=== PATIENT | female | born 1995 | race Caucasian/White ===

== ENCOUNTER 2017-06-15 21:32 | Emergency (ER) | payer OTHER ==
[~2017-06-15] VITALS: Ht 165.1 cm; Wt 67.1 kg
--- OUTSIDE RECORDS SUMMARY | 2017-06-15 21:39 | XMS REPORT | Summary of Care ---
Author Author Sylvie Bliss Organization Unknown Address [address] [place], [place] [id number] Phone Unavailable Care Team Providers Care Director Dance Name Role Phone Sylvie Bliss Unavailable Unavailable PCP Not Assigned Unavailable Unavailable Unavailable Unavailable Functional Status Name Dates Details Functional status health issues are not documented Status: Name Dates Details Cognitive status health issues are not documented Status: Problems Name Dates Details Embedded earring of right ear, initial encounter (910.6, S00.451A) Status: Active Sore throat (462, J02.9) Status: Active Fatigue (780.79, R53.83) Status: Active Medications Name Dates Details No Reported Medications Sylvie Bliss Active Allergies and Adverse Reactions Name Dates Details No Known Drug Allergies (Allergy) Status: Active Procedures Procedure Dates Details Procedures not documented Immunization Name Dates Details Immunizations not documented Social History Name Dates Details - Status: Name Dates Details Never smoker Vital Signs Date Test Result Details 22-Nov-2016 12:04 BP Systolic 102 mm[Hg] Status: Comments: Location: ; Position: BP Diastolic 62 mm[Hg] Status: Comments: Location: ; Position: Temperature 98.2 f Status: Comments: Method: Heart Rate 93 /min Status: Comments: Location: ; Height 64.5 in Status: Weight 162 lb Status: Physical Findings 98 Status: Comments: O2 Saturation Body Mass Index Calculated 27.38 kg/m2 Status: Body Surface Area Calculated 1.8 m2 Status: Results Date Description Value Details Results not documented Plan of Care Name Dates Details Planned Observations Planned Goals not documented Instructions Name Dates Details Instructions not documented Encounters Appointment; Sylvie Bliss Encounter Diagnosis: Problem not documented On 12-Aug-2016 15:40
--- OUTSIDE RECORDS SUMMARY | 2017-06-15 21:39 | XMS REPORT | Summary of Care ---
Author Author Sylvie Bliss Organization Unknown Address [address] [place], [place] [id number] Phone Unavailable Care Team Providers Care Emissions Technician Name Role Phone Sylvie Bliss Unavailable Unavailable Outside, Physician Unavailable Unavailable Functional Status Name Dates Details Functional status health issues are not documented Status: Name Dates Details Cognitive status health issues are not documented Status: Problems Name Dates Details Active medical history not documented Status: Medications Name Dates Details Medication not documented Allergies and Adverse Reactions Name Dates Details Allergy history not documented Status: Procedures Procedure Dates Details Procedures not documented Immunization Name Dates Details Immunizations not documented Social History Name Dates Details Unknown if ever smoked Vital Signs Date Test Result Details No Known Vitals to report Results Date Description Value Details Results not documented Plan of Care Name Dates Details Planned Observations Planned Goals not documented Instructions Name Dates Details Instructions not documented Encounters Appointment; Sylvie Bliss Encounter Diagnosis: Problem not documented On 12-Aug-2016 15:40
--- OUTSIDE RECORDS SUMMARY | 2017-06-15 21:39 | XMS REPORT | Summary of Care ---
Author Author Sylvie Bliss Organization Unknown Address [address] [place] [id number] Phone Unavailable Care Team Providers Care Centrifuge Operator Name Role Phone Ashwini Bedolla Unavailable Unavailable PCP Not Assigned Unavailable Unavailable Unavailable Unavailable Functional Status Name Dates Details Functional status health issues are not documented Status: Name Dates Details Cognitive status health issues are not documented Status: Problems Name Dates Details Embedded earring of right ear, initial encounter (910.6, S00.451A) Status: Active Sore throat (462, J02.9) Status: Active Mononucleosis (075, B27.90) Status: Active Medications Name Dates Details PredniSONE 10 MG Oral Tablet TAKE 4 TABLETS DAILY FOR 2 DAYS,3 TABLETS DAILY FOR 2 DAYS, 2 TABLETS DAILY FOR 2 DAYS AND 1 TABLET DAILY FOR 2 DAYS, THEN STOP. Quantity: 20 Ashwini Bedolla * Start 24-Nov-2016 Active Allergies and Adverse Reactions Name Dates Details No Known Drug Allergies (Allergy) Status: Active Past Medical History Name Dates Details History of Known health problems: none (V49.89, Z78.9) Status: Resolved Procedures Procedure Dates Details Procedures not documented Immunization Name Dates Details Immunizations not documented Family History Name Dates Details Family history of Known health problems: none (V49.89, Z78.9) Status: Active Name Dates Details Family history of Known health problems: none (V49.89, Z78.9) Status: Active Social History Name Dates Details - Status: [...] m2 Status: Results Date Description Value Details 22-Nov-2016 12:27 STREPTOCOCCUS SCREEN WITH CULTURE 5040 Comments: *Culture in progress*Testing performed by [facility], [address], [place] [address] Testing performed by [facility], [address], [place] [address] *STREPTOCOCCUS SCREEN NEGATIVE for Streptococcus pyogenes Range: NEGATIVE for Streptococcus pyogenes 12:49 Mononucleosis Ab (Reflex to EBV) 2011 [place] (Reflex to EBV) POSITIVE (Abnormal) Range: Negative 24-Nov-2016 15:44 THROAT CULTURE [id number] Comments: Betyah performed at: [facility] [place] [facility], [id number] [place] [address], [phone], Community Resource Consultant: Desmond Mckeon D.O., MPHQuest Collection Date/Time: [id number] Results Received Date/Time: [id number] Reported Date/Time: [id number] performed at: [facility] [place] [facility], [address] [place] [address], [phone], Community Resource Consultant: Desmond Mckeon D.O., MPHQuest Collection Date/Time: [id number] Results Received Date/Time: [id number] Reported Date/Time: [id number] CULTURE, THROAT SEE NOTE Comments: CULTURE, THROAT MICRO NUMBER: [id number] TEST STATUS: FINAL SPECIMEN SOURCE: THROAT SPECIMEN QUALITY: ADEQUATE RESULT: No oropharyngeal pathogens recovered.[[place]] ----- Plan of Care Name Dates Details Planned Observations Planned Goals not documented Interventions Provided Medication Changes* PredniSONE 10 MG Oral Tablet - Start Instructions Name Dates Details Instructions not documented Encounters Appointment; Sylvie Bliss Encounter Diagnosis: Problem not documented On 22-Nov-2016 11:25 Appointment; Sylvie Bliss Encounter Diagnosis: Problem not documented On 12-Aug-2016 15:40
--- OUTSIDE RECORDS SUMMARY | 2017-06-15 21:39 | XMS REPORT | Summary of Care ---
Author Author Graeme Ashwini Organization Unknown Address [address] [place], [place] [address] Phone Unavailable Care Team Providers Care Wire Sawyer Name Role Phone Ashwini Bedolla Unavailable Unavailable [...] Status: Active Fatigue (780.79, R53.83) Status: Active Mononucleosis (075, B27.90) Status: Active [...]
--- OUTSIDE RECORDS SUMMARY | 2017-06-15 21:39 | XMS REPORT | Summary of Care ---
Author Author Sylvie Bliss Organization Unknown Address [address] [place], [place] [address] Phone Unavailable Care Team Providers Care Alley Worker Name Role Phone Sylvie Bliss Unavailable Unavailable Outside, Physician Unavailable Unavailable Functional Status Name Dates Details Functional status health issues are not documented Status: Name Dates Details Cognitive status health issues are not documented Status: Problems Name Dates Details Embedded earring of right ear, initial encounter (910.6, S00.451A) Status: Active Medications Name Dates Details Mupirocin 2 % External Ointment APPLY A SMALL AMOUNT 2 TIMES DAILY DIRECTED. Quantity: 1 Sylvie Bliss * Start 14-Aug-2016 Active 22 GM Tube Allergies and Adverse Reactions Name Dates Details No Known Drug Allergies (Allergy) Status: Active Procedures Procedure Dates Details Procedures not documented Immunization Name Dates Details Immunizations not documented Social History Name Dates Details - Status: Name Dates Details Never smoker Vital Signs Date Test Result Details 14-Aug-2016 10:52 BP Systolic 128 mm[Hg] Status: Comments: Location: ; Position: BP Diastolic 83 mm[Hg] Status: Comments: Location: ; Position: Temperature 98.6 f Status: Comments: Method: Heart Rate 67 /min Status: Comments: Location: ; Physical Findings 99 Status: Comments: O2 Saturation Results Date Description Value Details Results not documented Plan of Care Name Dates Details Planned Observations Planned Goals not documented Instructions Name Dates Details Instructions not documented Encounters Appointment; Sylvie Bliss Encounter Diagnosis: Problem not documented On 12-Aug-2016 15:40
--- OUTSIDE RECORDS SUMMARY | 2017-06-15 21:39 | XMS REPORT | Summary of Care ---
Author Author Sylvie Bliss Organization Unknown Address [address] [place] [phone] Phone Unavailable Care Team Providers Care Logger Driving Horses Name Role Phone Sylvie Bliss Unavailable Unavailable Ashwini Bedolla Unavailable Unavailable PCP Not Assigned [...] FOR 2 DAYS, THEN STOP. Quantity: 20 KpannikaAshwini * Start 24-Nov-2016 Active Allergies and Adverse [...] 5040 Comments: *Culture in progress*Testing performed by [facility], [address], [place] [address] Testing performed by [facility], [address], [place] [address] *STREPTOCOCCUS SCREEN NEGATIVE for Streptococcus pyogenes Range: NEGATIVE for Streptococcus pyogenes 12:49 Mononucleosis Ab (Reflex to EBV) 2011 [place] (Reflex to EBV) POSITIVE (Abnormal) Range: Negative 24-Nov-2016 15:44 THROAT CULTURE [id number] Comments: Syrinix performed at: [facility], [address] [place] [address], [phone], Dock Hand: Desmond Mckeon D.O., MPHQuest Collection Date/Time: [id number] Results Received Date/Time: [id number] Reported Date/Time: [id number] performed at: [facility], [address] [place] [address], [phone], Dock Hand: Desmond Mckeon D.O., MPHQuest Collection Date/Time: [id number] Results Received Date/Time: [id number] Reported Date/Time: [id number] CULTURE, THROAT SEE NOTE Comments: CULTURE, THROAT MICRO NUMBER: [id number] TEST STATUS: FINAL SPECIMEN SOURCE: THROAT SPECIMEN QUALITY: ADEQUATE RESULT: No oropharyngeal pathogens recovered.[[place]] ----- Plan of Care Name Dates Details Planned Observations Planned Goals not documented Instructions Name Dates Details Instructions not documented Encounters Appointment; Sylvie Bliss Encounter Diagnosis: Problem not documented On 12-Aug-2016 15:40
--- NOTE | 2017-06-15 21:47 | ED Integumentary General ---
General Stated Complaint: SPIDER BITE L THIGH Source: patient Exam Limitations: no limitations History of Present Illness Time seen by provider: 21:47 Initial Comments To ER with a possible spider bite to the posterior left thigh. Patient was sitting on the floor of her home when she looked down and saw a spider crawling on her. She then evaluated herself and believes she may have seen a bite jose rafael to the back of her left thigh but she did not feel anything. She found a little bump and this was about an hour ago and since then she's been applying ice to the area. She has no systemic symptoms, no rash no pain. Timing/Duration: just prior to arrival Severity: mild Associated Symptoms: denies symptoms Constitutional: see HPI EENTM: see HPI Respiratory: no symptoms reported Cardiovascular: no symptoms reported Genitourinary: no symptoms reported Musculoskeletal: no symptoms reported Skin: no symptoms reported Psychiatric/Neurological: No Symptoms Reported Endocrine: No Symptoms Reported Past Hcvifqt-Tkifvg-Kujfln Hx Patient Social History Recent Foreign Travel: No Contact w/Someone Who Travel: No Physical Exam Vital Signs Capillary Refill : General Appearance: WD/WN, no apparent distress HEENT: PERRL/EOMI, normal ENT inspection Neck: non-tender, full range of motion Respiratory: no respiratory distress, no accessory muscle use Gastrointestinal: normal bowel sounds, non tender Neurologic/Psychiatric: alert, normal mood/affect, oriented x 3 Skin: normal color, warm/dry Skin Problem Location: other (small papule 2 mm in the posterior left thigh without induration and edema erythema or petechiae) Departure Impression Impression: Primary Impression: Brown recluse spider bite Disposition: 01 HOME, SELF-CARE Condition: Stable Departure-Patient Inst. Decision time for Depature: 21:44 Referrals: NO,LOCAL PHYSICIAN (PCP/Family) Primary Care Physician Patient Instructions: Spider Bites Add. Discharge Instructions: Keep cool compresses on this for the next 24-48 hours but be careful not to get to cold and induce a frostbite injury 2. Keep an eye out for any necrotic tissue which will appear as whitish tissue or black tissue 3. Keep an eye out for any systemic symptoms such as nausea, malaise, fevers or rash. This should prompt us to do blood work HUNTER FLOOD APRN Jun 15, 2017 21:47
[2017-06-15] MEDS ORDERED: Zyrtec (21:51)
[2017-06-15] MEDS ORDERED: Multivitamin (21:51)
== END 2017-06-15 21:52 | disposition home or self-care (01) ==
LOC: ER 21:35
DX: T63.331A Toxic effect of venom of brown recluse spider, accidental (unintentional), initial encounter (principal)
CPT/HCPCS: 99283